=== PATIENT | male | born 1945 | race Caucasian/White ===

== ENCOUNTER 2018-01-28 09:57 | Day surgery (SDC) | payer MEDICARE, BC, SELFPAY ==
[2018-01-25 13:42] VITALS: BMI 26.7
[2018-01-26 15:10] VITALS: BP 182/78; PULSE 65; RESP 18; TEMP 36.4; O2SAT 95
[2018-01-28] VITALS (8 sets, daily range): BP systolic 142–198; BP diastolic 78–92; PULSE 50–71; RESP 8–18; TEMP 36.3–36.7; O2SAT 95–97; BMI 26.7
[2018-01-28] MEDS: LACTATED RINGERS 1,000 ML 42 ML IV (11:00)
[2018-01-28] MEDS: CEFAZOLIN 2 GM/100 ML FROZ.PIGGY IV (12:28)
--- NOTE | 2018-01-28 12:30 | PM.PREOP ---
Pre-operative Note Interval Note Pre-op Check: History & Physical Reviewed by Physician and Exam Performed H&P completed within 30 days and has changed as indicated here:: Developed a rash in his groin from tenia. Under treatment but should not affect this operation.
--- NOTE | 2018-01-28 13:10 | SUR.OPER ---
Supine on padded OR bed, head on pillow, arms secured on padded arm boards at <90 degrees abduction, legs uncrossed, safety belt at thigh, tape over blanket over lower legs.
[2018-01-28] MEDS: BUPIVACAINE 0.5% (PF) 30 ML VIAL 20 ML INJ (13:24)
--- NOTE | 2018-01-28 14:26 | PM.OP.1 ---
Operative Date/Time/Diagnoses - Date of procedure: 01/28/18 Time of procedure: 14:26 Pre-op diagnosis: Bilateral reducible inguinal hernias. No evidence of incarceration or strangulation. Post-op diagnosis: same (Left side an indirect hernia. Right-sided direct hernia.) Procedure & Clinicians Procedure: Bilateral inguinal hernia repair with plug and patch technique on each side Same procedure as scheduled: Yes Indications: Symptomatic hernias Surgeon: Marcello Langston Anesthesia Type: General Operative Notes Findings: S CVP protocol was followed. See postop diagnosis. Closure Type: primary Specimen(s): none sent Implants & Drains: Mesh on both sides Estimated Blood Loss (mL): 10 Procedure in detail: The patient was placed supine on the operating room table and underwent general LMA anesthesia. He was prepped and draped in the usual fashion. We began on the left side. A transverse incision was made overlying the internal ring and carried down to the level of the external oblique. The external oblique was opened parallel with its fibers through the external ring. The cord structures were elevated. The cremaster was opened proximally and search made for an indirect sac. 1 was found which contained fat. The fat was reduced. The sac was closed with a 3 0 Polysorb suture ligation at the level of the deep epigastric vessels. The stump was permitted to retract and a medium plug was placed in the defect and tacked into place with interrupted 0 Tycron sutures.. The floor was examined and was found to be[intact]. A patch was placed across the floor and tacked at the pubic tubercle, the posterior lamella of the anterior rectus sheath, the ilioinguinal ligament, and superior lateral to the cord. The opening was modified as necessary to prevent tight constriction of the cord. Sutures of 0 Tycron were used to secure the mesh. The external oblique was closed with a running 3 0 Polysorb. The subcu was closed with interrupted 3 0 Polysorb. The skin was closed with a running 4 0 Polysorb subcuticular stitch. A mirror incision made on the opposite side and then operation performed that was nearly identical to the left side. The only difference was the hernia found on the right was an indirect 1 containing preperitoneal fat. A large plug and patch was used to repair the defect but otherwise the details were all with the same. Once completed Dressing was applied to both sides, the patient was awakened, and the patient was taken to the recovery area in good condition. Complications: none Condition: stable Disposition: PACU Plan for aftercare: Follow-up in the office
[2018-01-28] MEDS: fentaNYL 100 MCG/2 ML INJ 25 MCG IV (14:28)
[2018-01-28] MEDS: HYDROCODONE/ACET 5/325 TABLET 1 TAB PO (14:44)
== END 2018-01-28 15:30 | disposition home or self-care (01) ==
PROVIDERS: PCP Family Medicine Geriatric Medicine; Visit Provider Specialist
CPT/HCPCS: C1781; J0690; J2250; J3010

== ENCOUNTER → 2018-12-06 20:43 | Outpatient (REF) | payer MEDICARE, BC, SELFPAY ==
[2018-01-31 20:01] VITALS: BMI 27.1
[2018-12-09 16:22] LABS: PSA Free % 19 % (calc) (> 25); PSA, Total 7.2 ng/mL (< 4.1)
== END ==
LOC: LAB 20:43
PROVIDERS: PCP Family Medicine Geriatric Medicine; Visit Provider Family Medicine Geriatric Medicine
DX: Z12.5 Encounter for screening for malignant neoplasm of prostate (principal)
CPT/HCPCS: 36415; 84153; 84154

== ENCOUNTER 2019-03-08 08:07 | Day surgery (SDC) | payer MEDICARE, BC, SELFPAY ==
[2018-01-31 20:01] VITALS: BMI 27.1
[2019-03-08] VITALS (7 sets, daily range): BP systolic 130–178; BP diastolic 61–78; PULSE 48–60; RESP 11–17; TEMP 36–37.2; O2SAT 96–97; BMI 28.8
--- NOTE | 2019-03-08 | PATH_ITS ---
[facility] Accession Number: [id number] . 01 Material submitted: . PART A: colon - CECUM AND ASCENDING COLON POLYPS PART B: colon - TRANSVERSE COLON POLYPS PART C: colon - COLON POLYPS AT 30 CM PART D: rectum - RECTAL POLYPS PART E: colon - COLON POLYPS; ANAL VERGE . 02 Diagnosis: A. Cecum and Ascending Colon, Polyps: Fragment of tubular adenoma and fragments of colonic mucosa with no diagnostic abnormality. . B. Transverse Colon, Polyps: Fragments of hyperplastic polyp. . C. Colon at 30 cm, Polyps: Fragments of hyperplastic polyp. . D. Rectum, Polyps: Fragments of hyperplastic polyp. . E. Anal Verge, Polyps: Fragment of tubular adenoma and fragments of hyperplastic polyp. MR/03/09/2019 . 02 Electronically signed: . Jose Miguel Spring MD, PhD, Pathologist NPI- [id number] . 01 Gross description: . Part A: CECUM AND ASCENDING COLON POLYPS: Received in formalin are multiple fragment(s) of coburn, soft tissue measuring 0.1 x 0.1 x 0.1 cm to 0.4 x 0.2 x 0.1 cm which is entirely submitted and submitted entirely in 1 cassette(s) Part B: TRANSVERSE COLON POLYPS: Received in formalin are multiple fragment(s) of coburn, soft tissue measuring 0.1 x 0.1 x 0.1 cm to 0.5 x 0.4 x 0.3 cm which is entirely submitted and submitted entirely in 1 cassette(s) Part C: COLON POLYPS AT 30 CM: Received in formalin are 4 fragment(s) of coburn, soft tissue measuring 0.2 x 0.1 x 0.1 cm to 0.5 x 0.2 x 0.2 cm which is entirely submitted and submitted entirely in 1 cassette(s) Part D: RECTAL POLYPS: Received in formalin are 2 fragment(s) of coburn, soft tissue measuring 0.1 x 0.1 x 0.1 cm to 0.2 x 0.2 x 0.2 cm which is entirely submitted and submitted entirely in 1 cassette(s) Part E: COLON POLYPS; ANAL VERGE: Received in formalin are 3 fragment(s) of coburn, soft tissue measuring 0.2 x 0.2 x 0.2 cm to 0.4 x 0.3 x 0.3 cm which is entirely submitted and submitted entirely in 1 cassette(s) /[facility] /[facility] . 02 Pathologist provided ICD-10: D12.6, D12.8, K63.5 . 02 CPT . 369457, 643782, 590559, 154349, 915087 Performed at: 01 [facility] [address] [id number] MD Pb Heredia MD Phone: [phone] Performed at: [facility] [address] [place], [place] [id number] MD Karen Brandon MD Phone: [phone]
[2019-03-08] MEDS: SODIUM CHLORIDE 0.9% 1,000 ML 200 ML IV (08:37)
--- NOTE | 2019-03-08 08:52 | PM.HP.1 ---
History of Present Illness Date Patient Seen: 03/08/19 Time Patient Seen: 08:52 Chief complaint: [id number] COLONOSCOPY Narrative: The patient is a gentleman here for screening colonoscopy. His last exam was 3 years ago. He had many polyps in his back for re-examination. He says he has had up to 17. Patient History Medical History First degree AV block (Acute) Former smoker (Acute) History of ileus (Acute) PAC (premature atrial contraction) (Acute) Sleep apnea (Acute) BPH (benign prostatic hyperplasia) (Acute) Constipation (Acute) Edema (Acute) Environmental allergies (Acute) History of bronchitis (Acute) Hypertension (Acute) Inguinal hernia, bilateral (Acute) Rash (Acute) Sinus drainage (Acute) Urinary frequency (Acute) Surgical History History of inguinal hernia repair, bilateral (Acute) H/O colonoscopy (Acute) History of tonsillectomy (Acute) Hx of cataract surgery (Acute) Social History household members: spouse Smoking Status: Former smoker alcohol intake: current Family & Social History Social History: household members spouse Tobacco & Substance use: Tobacco type cigarettes Smoking Status Former smoker alcohol intake current alcohol intake frequency 0-2 drinks per day Substance Use Type does not use Meds Home Medications Medication Instructions Recorded Confirmed Type alfuzosin 10 mg PO DAILY 01/20/18 03/08/19 History felodipine 5 mg PO DAILY 01/20/18 03/08/19 History simvastatin [Zocor] 20 mg PO QDAY 01/20/18 03/08/19 History Turbinafine 250 mg PO QDAY MDD 14 DOSES 01/25/18 01/31/18 History fexofenadine 180 mg PO DAILY PRN 01/25/18 03/08/19 History fluticasone propionate 2 spray INTRANASAL DAILY PRN 01/25/18 03/08/19 History ranitidine HCl 150 mg PO BEDTIME PRN 01/25/18 03/08/19 History simethicone 125 mg PO PRN PRN 01/28/18 03/08/19 History hydrocortisone acetate [Anucort-HC] 25 mg [place] DAILY PRN 03/08/19 03/08/19 History irbesartan 300 mg PO DAILY 03/08/19 03/08/19 History Allergies Allergy/AdvReac Type Severity Reaction Status Date / Time No Known Allergies Allergy Verified 03/08/19 08:20 adhesive tape AdvReac Unknown Rash Verified 03/08/19 08:20 Review of Systems Review of Systems All systems reviewed & are unremarkable except as noted in HPI and below Exam Vital Signs (past 8 hours): - 03/08/19 08:28 Temperature 97.1 F L Pulse Rate 60 Respiratory Rate 16 Blood Pressure 178/78 H Pulse Oximetry 97 Oxygen Delivery Method Room Air Narrative Exam Narrative: Pleasant cooperative patient no apparent distress. Lungs are clear to auscultation. No rales or rhonchi. Heart regular rate and rhythm no murmur gallop. Abdomen is soft nontender without mass. No obvious hernias. Patient is alert and oriented x3. Assessment & Plan Assessment & Plan narrative: The patient for a screening colonoscopy. I have discussed the procedure with them. Risks of bleeding, perforation which would necessitate major operation, failure to find remove all lesions, the potential tattoo were all discussed. All questions were answered. They wished to proceed.
--- NOTE | 2019-03-08 08:55 | PM.PREOP ---
Pre-operative Note Interval Note History & Physical reviewed/Exam performed by Physician: Yes Changes to H&P: No ASA Class (for procedural sedation): II
[2019-03-08] MEDS: MIDAZOLAM 5 MG/5 ML VIAL IV (09:44)
[2019-03-08] MEDS: fentaNYL 250 MCG/5 ML INJ IV (09:44)
--- NOTE | 2019-03-08 10:10 | PM.OP.ENDO ---
Operative Date/Time/Diagnoses Date of procedure: 03/08/19 Time of procedure: 10:10 Pre-op diagnosis: Personal history of numerous polyps. Last exam 3 years ago. Post-op diagnosis: same (Numerous polyps) Procedure & Clinicians Study performed: Colonoscopy with cold biopsy and hot snare polypectomy and cauterization of multiple small lesions. Same procedure as scheduled: Yes Indications: Screening. Personal history of polyps Surgeon: Marcello Langston Procedure Notes SCOAP/Timeout: Perform Procedure in detail: The patient was placed in the left lateral decubitus position and underwent IV sedation directed by the surgeon consisting of fentanyl and Versed. Digital exam was remarkable for very large external tags with some prolapsed mucosa. Prostate is large.. The scope was inserted and advanced through the rectum into the sigmoid, descending, transverse, and ascending colon. I noted polyps going through the colon but decided to remove them on the way out as they were numerous in nature. The cecum was reached identified by the ileocecal valve and the appendiceal opening. The ileocecal valve was successfully cannulated. The terminal ileum was normal in appearance. The scope was gradually brought out. Polyps were found at the cecum, ascending colon, transverse colon, at 30 cm and in the rectum and anal verge. They were either hot snared, biopsied it any residual cauterized, or cauterized if tiny. None of these were over a cm in most were 5 mm or less. The scope ultimately was retroflexed in the rectum. The appearance was remarkable for small lesions and internal hemorrhoids. Lesions were either cauterized or biopsied.. The scope was removed and the patient tolerated the procedure well. Prep was excellent. Scope withdrawal time: 41 minutes total Sedation minutes: 57 Findings: internal hemorrhoids and polyp Specimen(s): other (Polyps) Complications: none Recommendations: Colonscopy in 3 years Follow up: as needed Disposition: PACU
== END 2019-03-08 11:10 | disposition home or self-care (01) ==
PROVIDERS: PCP Family Medicine Geriatric Medicine; Visit Provider Specialist
PROC: 0DJD8ZZ Inspection of Lower Intestinal Tract, Via Natural or Artificial Opening Endoscopic (ICD-10-PCS; CPT 45378; principal; 2019-03-08 08:45)
DX: Z86.010 Personal history of colon polyps (principal); K64.8 Other hemorrhoids; I44.0 Atrioventricular block, first degree; Z87.891 Personal history of nicotine dependence; G47.30 Sleep apnea, unspecified; I10 Essential (primary) hypertension; D12.6 Benign neoplasm of colon, unspecified; D12.8 Benign neoplasm of rectum; K63.5 Polyp of colon
CPT/HCPCS: 45385; 45380; 88305; 99152; 99153; J2250; J3010

== ENCOUNTER → 2019-06-08 18:28 | Outpatient (ROUT) | payer MEDICARE, BC, SELFPAY ==
[2018-01-31 20:01] VITALS: BMI 27.1
[2019-06-08 18:45] LABS: BUN Creatinine Ratio 22.7 (6-22); Blood Urea Nitrogen 25 mg/dL (9-20); Calcium 9.1 mg/dL (8.4-10.2); Carbon Dioxide 25 mmol/L (22-32); Chloride 105 mmol/L (98-107); Estimated Glomerular Filt Rate > 60.0 mL/min (>60); Glucose 130 mg/dL (80-110); HEMOLYSIS 36 (0-50); Potassium 3.9 mmol/L (3.4-5.1); Sodium 138 mmol/L (137-145)
== END ==
PROVIDERS: PCP Internal Medicine; Visit Provider Internal Medicine
DX: I10 Essential (primary) hypertension (principal)
CPT/HCPCS: 80048

== ENCOUNTER → 2020-07-05 10:01 | Outpatient (CLI) | payer OTHER, SELFPAY ==
[2018-01-31 20:01] VITALS: BMI 27.1
--- NOTE | 2020-07-05 18:05 | DI.NM.S_ITS ---
DATE OF SERVICE: 07/05/2020 PROCEDURE: Pharmacological perfusion study. INDICATION: Paroxysmal AFib, hypertension, hyperlipidemia. RADIOPHARMACEUTICAL: 27.1 millicurie technetium-99m Myoview IV was injected at stress and 12.3 millicurie technetium-99m Myoview IV was injected at rest. CARDIAC STRESS: The patient underwent IV Lexiscan perfusion study under the supervision of an attending staff. The patient remained hemodynamically stable. The patient received IV Lexiscan, as per protocol. Baseline rhythm was sinus. During stress, there were no convincing ischemic changes. No new significant arrhythmias. RAW DATA: There is increased subdiaphragmatic activity. Stress LV ejection fraction is 76 percent without any obvious wall motion abnormalities. Resting end-diastolic volume 100 mL. TID ratio 1.06, which is within normal limits. Lung/heart ratio 0.31, which is within normal limits. MYOCARDIAL PERFUSION: Resting supine images revealed a small size, mildly decreased perfusion of inferior wall, inferoapex. Stress supine images revealed mildly decreased perfusion of inferior wall. During stress prone, there was complete resolution of inferior wall and inferoapical defect. There was a new defect in the mid anterior and mid anteroseptal wall, which was not seen during stress supine images. CONCLUSION: I will call this study a normal myocardial perfusion study with evidence of diaphragmatic tissue attenuation artifact, which got resolved during prone images, as well as some shifting tissue attenuation artifact. Preserved left ventricular function. No transient ischemic dilatation. Overall, this is a low-risk myocardial perfusion study. Nazario Ibrahim - Rachel/liudmila doc#: [id number]/job#: [id number] dd: 07/05/2020 17:22:00 dt: 07/05/2020 17:40:00 DICTATING MD/COPIES TO: Opal Haines MD COPIES MNE: FLOR;
== END ==
PROVIDERS: PCP Internal Medicine; Referring Provider Internal Medicine; Visit Provider Nurse Practitioner
DX: I48.0 Paroxysmal atrial fibrillation (principal); I10 Essential (primary) hypertension; E78.5 Hyperlipidemia, unspecified; I71.2 Thoracic aortic aneurysm, without rupture
CPT/HCPCS: 78452; 93017; A9502; J2785

== ENCOUNTER → 2021-02-20 09:14 | Outpatient (CLI) | payer OTHER, SELFPAY ==
[2018-01-31 20:01] VITALS: BMI 27.1
--- NOTE | 2021-02-20 | DI.ECHO.S_ITS ---
[facility]---------+ [facility] +---------+ : : [address] : : : : [id number] : : : : Phone: [phone] +---------+ Echocardiogram Report + + :Name: NANCY HUFF Study Date: 02/20/2021 Height: 74 in : :[facility] ReadingLocation: Weight: 207 lb : : Gender: Male BSA: 2.2 m2 : :: 1945 Age: 75 yrs BP: 168/91 mmHg: :Reason For Study: AORTIC ECTASIA : :Ordering Physician: : :GISELLE LYONS Performed By: Mendy Zelaya : :Referring: GISELLE LYONS : + + Interpretation Summary The left ventricular cavity is small. There is moderate concentric left ventricular hypertrophy. The ejection fraction is estimated to be 60-65%. No significant change in LVEF from the previous study. There is a worsening concentric LVH. Blood pressure 168/91 mmHg during the study. The right ventricle is normal in size and function. The aortic valve is mildly calcified. There is mild to moderately reduced leaflet mobility. There is no hemodynamically significant valvular aortic stenosis. Ao root diam: 4.6 cm asc Aorta Diam: 4.6 cm Ao Arch Diam (Prox Trans): 3.8 cm 09/30/2017: Ao root diam: 4.6 cm Aortic Jxn: 3.8 cm asc Aorta Diam: 4.8 cm Procedure: A two-dimensional transthoracic echocardiogram with color flow and Doppler was performed. The study quality was technically adequate. Comparison is made with the echocardiogram of 09/30/2017. The patient was in sinus bradycardia with heart rates between 56-61 bpm during the exam. Left Ventricle: The left ventricular cavity is small. There is moderate concentric left ventricular hypertrophy. There is no thrombus. The ejection fraction is estimated to be 60-65%. There are no focal wall motion abnormalities. MV E/A: 1.8 Med Peak E' Willy: 6.8 cm/sec E/E' med: 13.0. Right Ventricle: The right ventricle is normal in size and function. Atria: The left atrium is mildly dilated. The left atrium has mildly decreased in size since the prior echo exam. Right atrial size is normal. There is no Doppler evidence for an interatrial shunt. Mitral Valve: The mitral valve leaflets appear mildly thickened, but open well. There is trace mitral regurgitation. Aortic Valve: The aortic valve is mildly calcified. There is mild aortic valve sclerosis. There is mild to moderately reduced leaflet mobility. There is no hemodynamically significant valvular aortic stenosis. There is trace aortic regurgitation. Tricuspid Valve: The tricuspid valve is normal. There is trace tricuspid regurgitation. The right ventricular systolic pressure is estimated to be at least 30 mmHg based on an estimated right atrial pressure of 3 mm Hg. Pulmonic Valve: The pulmonic valve is not well visualized. There is no pulmonic valvular regurgitation. Great Vessels: The aortic root is moderately dilated. The ascending aorta is moderately enlarged. The aortic arch is mild-moderately enlarged. The IVC is of normal diameter and collapses greater than 50% with a sniff. This suggests a low right atrial pressure of 3 mm Hg. Pericardium/ Pleura There is no pericardial effusion. There is no pleural effusion. MMode/2D Measurements & Calculations LVIDd: 3.9 cm LVOT diam: 2.4 cm LVIDs: 2.6 cm Ao root diam: 4.6 cm FS: 33.9 % asc Aorta Diam: 4.6 cm IVSd: 1.6 cm Ao Arch Diam (Prox Trans): 3.8 cm LVPWd: 1.4 cm LV morse. diameter/BSA (cm/m^2): 1.8 LV sys. diameter/BSA (cm/m^2): 1.2 LA A2 area: 26.6 cm2 RA long axis: 4.7 cm LA A4 area: 20.3 cm2 RA area: 14.5 cm2 LA length (vol): 5.9 cm RA vol: 38.4 ml LA vol: 77.9 ml RA : 17.4 ml/m2 LA vol index: 35.3 ml/m2 IVC diam: 1.8 cm RVD1 (basal): 2.8 cm TAPSE: 2.4 cm Doppler Measurements & Calculations Ao V2 max: 153.2 cm/sec LVOT Max Willy: 107.9 cm/sec Ao V2 mean: 114.6 cm/sec LV V1 max P.7 mmHg Ao max P.4 mmHg LV V1 VTI: 26.3 cm Ao mean P.7 mmHg CHON(I,D): 3.3 cm2 Ao V2 VTI: 37.7 cm CHON(V,D): 3.3 cm2 sev ratio: 0.70 CHON indexed to BSA (cm^2/m^2): 1.5 MV E max willy: 89.1 cm/sec TR max willy: 258.6 cm/sec MV A max willy: 49.8 cm/sec TR max P.8 mmHg MV E/A: 1.8 PA pr(Accel): 51.0 mmHg Med Peak E' Willy: 6.8 cm/sec E/E' med: 13.0 Lat Peak E' Willy: 8.0 cm/sec E/E' lat: 11.1 E/e' average: 12.1 MV dec time: 0.21 sec SV(LVOT): 123.1 ml Reading Physician:05:53 PM
== END ==
PROVIDERS: PCP Family Medicine; Referring Provider Internal Medicine Cardiovascular Disease; Visit Provider Internal Medicine Cardiovascular Disease
DX: I71.2 Thoracic aortic aneurysm, without rupture (principal)
CPT/HCPCS: 93306

== ENCOUNTER → 2022-02-13 09:03 | Outpatient (CLI) | payer OTHER, SELFPAY ==
[2018-01-31 20:01] VITALS: BMI 27.1
--- NOTE | 2022-02-13 | DI.ECHO.S_ITS ---
[facility] +---------+ [facility] +---------+ : : [address] : : : : [id number] : : : : Phone: [phone] +---------+ Echocardiogram Report + + :Name: NANCY HUFF Study Date: 02/13/2022 Height: 73.5 in: :[facility] ReadingLocation: Weight: 209 lb : : Gender: Male BSA: 2.2 m2 : :: 1945 Age: 76 yrs BP: 155/87 mmHg: :Reason For Study: THORACIC AORTIC ANEURYSM WITHOUT RUPTURE : :Ordering Physician: ELOY, : :GISELLE Performed By: Mendy Zelaya : :Referring: GISELLE LYONS : + + Interpretation Summary The left ventricle is normal in size. The ejection fraction is estimated to be 60-65%. There has been no significant change in LVEF since the previous exam. MV E/A: 1.7 Med Peak E' Willy: 8.6 cm/sec E/E' med: 10.0 The right ventricle is normal in size and function. Aortic valve mild to moderately calcified. There is mild to moderately reduced leaflet mobility. There is no hemodynamically significant valvular aortic stenosis. Peak aortic valve velocity 1.5 m/s and mean gradient 5.1 mmHg. The aortic root is moderately dilated. Aortic root 4.6 cm in diameter without any significant change from the previous study. The ascending aorta is moderately enlarged. 4.7 cm in diameter. Previously 4.6 cm. The aortic arch is mild-moderately enlarged. 3.9cm in diameter. Previously 3.8 cm. Mild atherosclerotic plaque(s) in the aortic arch. 09/30/2017: Ao root diam: 4.6 cm Aortic Jxn: 3.8 cm asc Aorta Diam: 4.8 cm Procedure: A two-dimensional transthoracic echocardiogram with color flow and Doppler was performed. The study quality was technically adequate. Comparison is made with the echocardiogram of 02/20/2021. The patient was in sinus rhythm with heart rates between 51-64 bpm during the exam. Left Ventricle: The left ventricle is normal in size. Left ventricular wall thickness is mild-moderately increased. There is no thrombus. The ejection fraction is estimated to be 60-65%. There has been no significant change since the previous exam. There are no focal wall motion abnormalities. MV E/A: 1.7 Med Peak E' Willy: 8.6 cm/sec E/E' med: 10.0. Right Ventricle: The right ventricle is normal in size and function. Atria: The left atrium is mildly dilated. The left atrium has remained unchanged in size since the prior echo exam. Right atrial size is normal. There is no Doppler evidence for an interatrial shunt. Mitral Valve: The mitral valve leaflets appear mildly thickened, but open well. There is trace mitral regurgitation. Aortic Valve: There is mild to moderately reduced leaflet mobility. Aortic valve mild to moderately calcified. The aortic valve is not well visualized. There is no hemodynamically significant valvular aortic stenosis. No aortic regurgitation is present. Tricuspid Valve: The tricuspid valve is normal in structure and function. There is trace tricuspid regurgitation. The right ventricular systolic pressure is estimated to be at least 35 mmHg based on an estimated right atrial pressure of 8 mm Hg. Pulmonic Valve: The pulmonic valve is not well visualized. There is no pulmonic valvular regurgitation. Great Vessels: The aortic root is moderately dilated. The ascending aorta is moderately enlarged. The aortic arch is mild-moderately enlarged. Mild atherosclerotic plaque(s) in the aortic arch. The IVC is dilated (diameter is greater than 2.1 cm) yet it collapses greater than 50% with a sniff. This suggests a right atrial pressure of 8 mm Hg. Pericardium/ Pleura There is no pericardial effusion. There is no pleural effusion. MMode/2D Measurements & Calculations LVIDd: 4.3 cm LVOT diam: 2.3 cm LVIDs: 2.8 cm Ao root diam: 4.6 cm FS: 35.5 % asc Aorta Diam: 4.7 cm IVSd: 1.5 cm Ao Arch Diam (Prox Trans): 3.9 cm LVPWd: 1.1 cm LV morse. diameter/BSA (cm/m^2): 2.0 LV sys. diameter/BSA (cm/m^2): 1.3 LA A2 area: 26.3 cm2 RA long axis: 5.7 cm LA A4 area: 23.1 cm2 RA area: 18.8 cm2 LA length (vol): 6.5 cm RA vol: 52.6 ml LA vol: 78.7 ml RA : 23.9 ml/m2 LA vol index: 35.7 ml/m2 IVC diam: 2.3 cm RVD1 (basal): 3.4 cm RVD2 (mid): 2.6 cm TAPSE: 2.3 cm Doppler Measurements & Calculations Ao V2 max: 151.8 cm/sec LVOT Max Willy: 112.6 cm/sec Ao V2 mean: 105.5 cm/sec LV V1 max P.1 mmHg Ao max P.2 mmHg LV V1 VTI: 29.7 cm Ao mean P.1 mmHg CHON(I,D): 3.2 cm2 Ao V2 VTI: 37.3 cm CHON(V,D): 3.0 cm2 sev ratio: 0.80 CHON indexed to BSA (cm^2/m^2): 1.5 MV E max willy: 86.5 cm/sec TR max willy: 259.7 cm/sec MV A max willy: 52.2 cm/sec TR max P.0 mmHg MV E/A: 1.7 PA V2 max: 109.5 cm/sec Med Peak E' Willy: 8.6 cm/sec PA V2 mean: 80.6 cm/sec E/E' med: 10.0 PA mean P.9 mmHg Lat Peak E' Willy: 8.5 cm/sec PA pr(Accel): 37.9 mmHg E/E' lat: 10.2 E/e' average: 10.1 MV dec time: 0.22 sec SV(LVOT): 120.6 ml Reading Physician:03:50 PM
== END ==
PROVIDERS: PCP Physician Assistant Medical; Referring Provider Internal Medicine Cardiovascular Disease; Visit Provider Internal Medicine Cardiovascular Disease
DX: I71.2 Thoracic aortic aneurysm, without rupture (principal); I70.0 Atherosclerosis of aorta
CPT/HCPCS: 93306

== ENCOUNTER → 2024-07-04 13:41 | Outpatient (CLI) | payer MEDICARE, SELFPAY ==
[2018-01-31 20:01] VITALS: BMI 27.1
--- NOTE | 2024-07-04 13:43 | DI.ECHO.S_ITS ---
[facility] : : [address] : : [place] : : [id number] : : Phone: [phone] Echocardiogram Report + + :Name: NANCY HUFF Study Date: 07/04/2024 Height: 73.5 in: :[facility] ReadingLocation: Weight: 214 lb : : Gender: Male BSA: 2.2 m2 : :: 1945 Age: 79 yrs BP: 162/95 mmHg: :Reason For Study: ASCENDING AORTA DILATATION : :Ordering Physician: ELOY, : :GISELLE Performed By: Mendy Zelaya : :Referring: GISELLE LYONS : + + Interpretation Summary The left ventricular cavity is small. There is moderate concentric left ventricular hypertrophy. The ejection fraction is estimated to be 65-70%. There is no echo evidence for significant left ventricular outflow tract obstruction. The right ventricle is normal in size and function. The aortic valve is moderately calcified. There is mild to moderately reduced leaflet mobility. The peak aortic velocity is 2.11 m/sec. The aortic valve mean gradient is 11 mmHg. The peak aortic velocity on the previous exam was 1.5 m/sec. There is no hemodynamically significant valvular aortic stenosis. Overall aortic stenosis appears to be mild. There is mild tricuspid regurgitation. The right ventricular systolic pressure is estimated to be at least 28 mmHg based on an estimated right atrial pressure of 3 mm Hg. The aortic root is moderately dilated. 4.5 cm in diameter. In February 2022, 4.6 cm in diameter The ascending aorta is moderately enlarged. 4.7 cm in diameter. In February 2022, 4.7 cm in diameter Moderate atherosclerotic plaque(s) in the aortic arch. 4.2 cm in diameter. In February 2022, 3.9 cm in diameter. Procedure: A two-dimensional transthoracic echocardiogram with color flow and Doppler was performed. The study quality was technically adequate. Comparison is made with the echocardiogram of 02/13/2022. The patient was in sinus bradycardia with heart rates between 54-64 bpm during the exam. Left Ventricle: There is moderate concentric left ventricular hypertrophy. The left ventricular cavity is small. There is no echo evidence for significant left ventricular outflow tract obstruction. There is no thrombus. The ejection fraction is estimated to be 65-70%. There are no focal wall motion abnormalities. MV E/A: 1.6 Med Peak E' Willy: 8.2 cm/sec E/E' med: 9.5. Right Ventricle: The right ventricle is normal in size and function. Atria: The left atrial size is normal. The left atrium has mildly decreased in size since the prior echo exam. Right atrial size is normal. There is no Doppler evidence for an interatrial shunt. Mitral Valve: The mitral valve leaflets appear mildly thickened, but open well. There is mild mitral annular calcification. There is trace mitral regurgitation. Aortic Valve: The aortic valve is moderately calcified. There is mild to moderately reduced leaflet mobility. The aortic valve is trileaflet. The peak aortic velocity is 2.11 m/sec. The aortic valve mean gradient is 11 mmHg. The calculated aortic valve area is 2.3 cm2. The peak aortic velocity on the previous exam was 1.5 m/sec. There is no hemodynamically significant valvular aortic stenosis. There is trace aortic regurgitation. Tricuspid Valve: The tricuspid valve is normal in structure and function. There is mild tricuspid regurgitation. The right ventricular systolic pressure is estimated to be at least 28 mmHg based on an estimated right atrial pressure of 3 mm Hg. Pulmonic Valve: The pulmonic valve is not well visualized. There is no pulmonic valvular regurgitation. Great Vessels: The aortic root is moderately dilated. There is aortic root sclerosis/calcification. The ascending aorta is moderately enlarged. Moderate atherosclerotic plaque(s) in the aortic arch. The IVC is dilated (diameter is greater than 2.1 cm) yet it collapses greater than 50% with a sniff. This suggests a right atrial pressure of 8 mm Hg. Pericardium/ Pleura There is no pericardial effusion. There is no pleural effusion. MMode/2D Measurements & Calculations LVIDd: 3.7 cm LVOT diam: 2.2 cm LVIDs: 2.5 cm Ao root diam: 4.5 cm FS: 32.9 % asc Aorta Diam: 4.7 cm IVSd: 1.6 cm Ao Arch Diam (Prox Trans): 4.2 cm LVPWd: 1.5 cm LV morse. diameter/BSA (cm/m^2): 1.6 LV sys. diameter/BSA (cm/m^2): 1.1 LA A2 area: 21.7 cm2 RA long axis: 5.0 cm LA A4 area: 20.9 cm2 RA area: 13.9 cm2 LA length (vol): 5.8 cm RA vol: 32.9 ml LA vol: 66.1 ml RA : 14.8 ml/m2 LA vol index: 29.7 ml/m2 IVC diam: 2.5 cm RVD1 (basal): 2.8 cm RVD2 (mid): 2.1 cm TAPSE: 2.2 cm Doppler Measurements & Calculations Ao V2 max: 211.8 cm/sec LVOT Max Willy: 126.2 cm/sec Ao V2 mean: 132.9 cm/sec LV V1 max P.4 mmHg Ao max P.3 mmHg LV V1 VTI: 28.6 cm Ao mean P.2 mmHg CHON(I,D): 2.8 cm2 Ao V2 VTI: 38.8 cm CHON(V,D): 2.3 cm2 sev ratio: 0.74 CHON indexed to BSA (cm^2/m^2): 1.3 MV E max willy: 78.3 cm/sec TR max willy: 252.0 cm/sec MV A max willy: 48.7 cm/sec TR max P.4 mmHg MV E/A: 1.6 PA V2 max: 103.9 cm/sec Med Peak E' Willy: 8.2 cm/sec PA V2 mean: 73.1 cm/sec E/E' med: 9.5 PA mean P.3 mmHg Lat Peak E' Willy: 7.8 cm/sec PA pr(Accel): 44.7 mmHg E/E' lat: 10.0 E/e' average: 9.8 MV dec time: 0.18 sec SV(LVOT): 108.9 ml Reading Physician:03:49 PM
== END ==
PROVIDERS: PCP Physician Assistant; Referring Provider Internal Medicine Cardiovascular Disease; Visit Provider Internal Medicine Cardiovascular Disease
DX: I08.1 Rheumatic disorders of both mitral and tricuspid valves (principal); I77.810 Thoracic aortic ectasia; I77.89 Other specified disorders of arteries and arterioles; I70.0 Atherosclerosis of aorta
CPT/HCPCS: 93306

== ENCOUNTER → 2024-07-04 13:43 | Outpatient (CLI) | payer MEDICARE, BC, SELFPAY ==
[2018-01-31 20:01] VITALS: BMI 27.1
--- NOTE | 2024-07-04 15:00 | DI.CT.S_ITS ---
PROCEDURE: CT CHEST HIGH RESOLUTION INDICATIONS: cough, TECHNIQUE: Noncontrast 1.0 and 5.0 mm thick contiguous axial sections from the pulmonary apex to the posterior costophrenic angles, with 7 mm thick coronal and sagittal MIP reformats. 1 mm thick dynamic expiratory images acquired through the upper, mid, and lower lungs. 1.0 mm thick axial sections acquired from the karoline to the posterior costophrenic angles in the prone end-inspiration position. For radiation dose reduction, the following was used: automated exposure control, adjustment of mA and/or kV according to patient size. COMPARISON: Outside Facility, CT, CT CHEST ABD PEL W CON, 08/25/2023, 7:27. FINDINGS: Image quality: Diagnostic. Lower Neck: No enlarged lymph nodes. Thyroid: No thyroid nodules which require sonographic follow up, per consensus guidelines. Axillae: No enlarged lymph nodes. Chest Wall: Subcutaneous nodularity in the upper, outer quadrant of the right breast measuring 0.7 cm (series 3, image 38); findings are stable and likely represent an epidermal cyst. Bilateral gynecomastia. Bones: Unremarkable. Lungs and Pleura: No pneumothorax or pleural effusions. No consolidation or suspicious nodules. Mild smooth interstitial thickening. Bronchial thickening. Heart: Heart size is enlarged. No pericardial effusion. Three-vessel coronary calcifications. Thoracic Vessels: Ascending aortic aneurysm measuring 4.7 cm. Mediastinum and Vy: No enlarged lymph nodes. Esophagus: No wall thickening. No hiatal hernia. Upper Abdomen: Visualized upper abdomen solid organs and bowel loops appear normal. IMPRESSION: Bronchial thickening with mild smooth interstitial thickening, suggestive mild pulmonary edema. Superimposed infectious or inflammatory bronchiolitis is also a consideration. Ascending aortic aneurysm measuring 4.7 cm. Findings are stable from prior. Other chronic findings as above. Dictated by: Patrice Crespo M.D. on 07/04/2024 at 18:00 Approved by: Patrice Crespo M.D. on 07/04/2024 at 18:06
== END ==
PROVIDERS: PCP Physician Assistant; Referring Provider Internal Medicine; Visit Provider Internal Medicine
DX: I71.21 Aneurysm of the ascending aorta, without rupture (principal); I08.1 Rheumatic disorders of both mitral and tricuspid valves; I77.89 Other specified disorders of arteries and arterioles; I70.0 Atherosclerosis of aorta; I25.10 Atherosclerotic heart disease of native coronary artery without angina pectoris; J30.9 Allergic rhinitis, unspecified; R91.8 Other nonspecific abnormal finding of lung field; R05.3 Chronic cough
CPT/HCPCS: 71250; 93306

== ENCOUNTER → 2025-06-15 12:35 | Outpatient (CLI) | payer OTHER, SELFPAY ==
[2018-01-31 20:01] VITALS: BMI 27.1
--- NOTE | 2025-06-15 12:39 | DI.ECHO.S_ITS ---
[facility] : : [address] : : [place] : : [id number] : : Phone: [phone] Echocardiogram Report + + :Name: NANCY HUFF Study Date: 06/15/2025 Height: 73.5 in: :[facility] ReadingLocation: Weight: 216 lb : : Gender: Male BSA: 2.2 m2 : :: 1945 Age: 80 yrs BP: 149/93 mmHg: :Reason For Study: ANEURYSM OF ASCENDING AORTA W/O RUPTURE : :Ordering Physician: ELOY, : :GISELLE Performed By: Mendy Zelaya : :Referring: GISELLE LYONS : + + Interpretation Summary The left ventricle is normal in size. The left ventricle is hyperdynamic. The ejection fraction is estimated to be 70-75%. No significant LV outflow tract obstruction The right ventricle is normal in size and function. The aortic valve is trileaflet. There is mild to moderately reduced leaflet mobility. The peak aortic velocity is 1.9 m/sec. The peak aortic velocity on the previous exam was 2.1 m/sec. There is no hemodynamically significant valvular aortic stenosis. The aortic root is moderately dilated. 4.5 cm in diameter without any significant change from the previous study. The ascending aorta is moderately enlarged. 4.7 cm in diameter without any significant change from the previous study. The aortic arch is mildly enlarged. No significant atherosclerotic plaque seen in aortic arch. The IVC is dilated (diameter is greater than 2.1 cm) yet it collapses greater than 50% with a sniff. This suggests a right atrial pressure of 8 mm Hg. Procedure: A two-dimensional transthoracic echocardiogram with color flow and Doppler was performed. The study quality was technically adequate. Comparison is made with the echocardiogram of 07/04/2024. The patient was in sinus rhythm with heart rates between 55-77 bpm during the exam. Left Ventricle: The left ventricle is normal in size. There is mild-moderate concentric left ventricular hypertrophy. Proximal septal thickening is noted. There is no thrombus. The ejection fraction is estimated to be 70-75%. The left ventricle is hyperdynamic. There are no focal wall motion abnormalities. MV E/A: 1.3 Med Peak E' Willy: 7.9 cm/sec E/E' med: 10.3. Right Ventricle: The right ventricle is normal in size and function. Atria: The left atrial size is normal. There has been no significant change since the previous study. Right atrial size is normal. There is no Doppler evidence for an interatrial shunt. Mitral Valve: The mitral papillary muscle appears thickened and/or calcified. The mitral valve leaflets appear mildly thickened. There is mild mitral annular calcification. There is mild mitral regurgitation. Aortic Valve: The aortic valve is moderately calcified. The aortic valve is trileaflet. There is mild to moderately reduced leaflet mobility. The peak aortic velocity is 1.9 m/sec. The aortic valve mean gradient is 8.5 mmHg. The calculated aortic valve area is 2.6 cm2. The peak aortic velocity on the previous exam was 2.1 m/sec. There is no hemodynamically significant valvular aortic stenosis. No aortic regurgitation is present. Tricuspid Valve: The tricuspid valve is not well visualized, but is grossly normal. There is trace tricuspid regurgitation. Pulmonary artery pressures cannot be estimated because of the lack of a measurable TR jet velocity but the IVC suggests a CVP of around 8 mmHg. Pulmonic Valve: The pulmonic valve is not well visualized. There is no pulmonic valvular regurgitation. Great Vessels: The aortic root is moderately dilated. There is aortic root sclerosis/calcification. The ascending aorta is moderately enlarged. The aortic arch is mildly enlarged. The IVC is dilated (diameter is greater than 2.1 cm) yet it collapses greater than 50% with a sniff. This suggests a right atrial pressure of 8 mm Hg. Pericardium/ Pleura There is no pericardial effusion. There is an anterior echo-free space consistent with a fat pad. There is no pleural effusion. MMode/2D Measurements & Calculations LVIDd: 4.1 cm LVOT diam: 2.1 cm LVIDs: 2.6 cm Ao root diam: 4.5 cm FS: 37.8 % asc Aorta Diam: 4.7 cm IVSd: 1.5 cm Ao Arch Diam (Prox Trans): 3.8 cm LVPWd: 1.3 cm LV morse. diameter/BSA (cm/m^2): 1.8 LV sys. diameter/BSA (cm/m^2): 1.1 LA A2 area: 24.0 cm2 RA long axis: 5.0 cm LA A4 area: 19.1 cm2 RA area: 14.6 cm2 LA length (vol): 5.3 cm RA vol: 36.2 ml LA vol: 73.3 ml RA : 16.2 ml/m2 LA vol index: 32.8 ml/m2 IVC diam: 2.6 cm RVD1 (basal): 3.0 cm RVD2 (mid): 2.7 cm TAPSE: 2.4 cm Doppler Measurements & Calculations Ao V2 max: 190.3 cm/sec LVOT Max Willy: 137.8 cm/sec Ao V2 mean: 130.4 cm/sec LV V1 max P.6 mmHg Ao max P.9 mmHg LV V1 VTI: 28.5 cm Ao mean P.5 mmHg CHON(I,D): 2.5 cm2 Ao V2 VTI: 40.5 cm CHON(V,D): 2.6 cm2 sev ratio: 0.71 CHON indexed to BSA (cm^2/m^2): 1.1 MV E max willy: 80.9 cm/sec PA V2 max: 89.9 cm/sec MV A max willy: 62.0 cm/sec PA V2 mean: 64.4 cm/sec MV E/A: 1.3 PA mean P.8 mmHg Med Peak E' Willy: 7.9 cm/sec PA pr(Accel): 40.5 mmHg E/E' med: 10.3 Lat Peak E' Willy: 9.2 cm/sec E/E' lat: 8.8 E/e' average: 9.5 MV dec time: 0.22 sec SV(LVOT): 102.8 ml Reading Physician:04:24 PM
== END ==
PROVIDERS: PCP Student in an Organized Health Care Education/Training Program; Referring Provider Student in an Organized Health Care Education/Training Program; Visit Provider Internal Medicine Cardiovascular Disease
DX: I71.21 Aneurysm of the ascending aorta, without rupture (principal); I34.81 Nonrheumatic mitral (valve) annulus calcification; I34.0 Nonrheumatic mitral (valve) insufficiency
CPT/HCPCS: 93306

== ENCOUNTER → 2025-06-28 15:01 | Outpatient (CLI) | payer MEDICARE, BC, OTHER, SELFPAY ==
[2018-01-31 20:01] VITALS: BMI 27.1
== END ==
PROVIDERS: PCP Student in an Organized Health Care Education/Training Program; Visit Provider Nurse Practitioner Family
DX: R82.90 Unspecified abnormal findings in urine (principal)
CPT/HCPCS: 87086